=== PATIENT | male | born 1980 | race Caucasian/White ===

== ENCOUNTER 2019-10-14 13:17 | Emergency (ER) | payer BC ==
[2019-10-14 13:37] VITALS: BP 141/84
--- NOTE | 2019-10-14 13:49 | ED Physician Documentation ---
General Adult - HISTORIAN Historian: patient - HPI Stated Complaint: R eye redness Chief Complaint: General Adult Onset: days ago (1) Timing: still present Severity: moderate Further Comments: yes (Pt has pain and redness in his R eye. Sx began yesterday. R eye is red, painful to move and to look at light. Pt is unsure if he got something in eye. He does not now have the feeling of a foreign body in his eye.) - ROS CONST: no problems EYES/ENT: other (inflammation R eye, painful to move and to look at light) CVS/RESP: none GI/: none MS/SKIN/LYMPH: none - PAST HX Past History: other (appendectomy) Allergies/Adverse Reactions: Allergies Allergy/AdvReac Type Severity Reaction Status Date / Time No Known Allergies Allergy Verified 10/14/19 13:31 Home Medications: Ambulatory Orders Medication Instructions Recorded NK 10/14/19 - SOCIAL HX Smoking History: cigarettes - FAMILY HX Family History: No - VITAL SIGNS Vital Signs: Vital Signs Temp Pulse Resp BP Pulse Ox 98.3 F 91 H 18 141/84 96 10/14/19 13:18 10/14/19 13:18 10/14/19 13:18 10/14/19 13:18 10/14/19 13:18 - REVIEWED ASSESSMENTS Nursing Assessment Reviewed: Yes Vitals Reviewed: Yes Progress - Progress Progress: Follow up [facility]. Ophthalmology, Dr. Lucrecia Carlton iritis/uveitis Arrangement made for pt to be transferred to [facility] for evaluation by tobacco stripper hand, Dr. Lucrecia Carlton. Pt left without waiting for discharge/transfer paperwork. It is uncertain whether he will f/u as planned. Pt left AMA. General Adult Physical Exam - PHYSICAL EXAM GENERAL APPEARANCE: moderate distress EENT: No: other (R scleral injection; no hyphema; ) NECK: normal inspection, supple RESPIRATORY: no resp distress, chest non-tender CVS: reg rate & rhythm, heart sounds normal SKIN: warm/dry EXTREMITIES: non-tender, normal range of motion, no evidence of injury NEURO: oriented X3, motor nml, sensation nml Discharge Clincal Impression: iritis/uveitis R eye Referrals: Primary Doctor,No [Primary Care Provider] - Condition: Fair Disposition: AGAINST MEDICAL ADVICE Decision to Admit: NO Decision Time: 14:08
== END 2019-10-14 14:15 | disposition left against medical advice (07) ==
LOC: ED 13:17
DX: H20.9 Unspecified iridocyclitis (principal)
CPT/HCPCS: 99282